=== PATIENT | female | born 1955 | race Caucasian/White ===

== ENCOUNTER 2021-07-28 17:20 | Emergency (ER) | payer MEDICARE ==
[~2021-07-28] VITALS: Ht 165.1 cm; Wt 46.3 kg
[~2021-07-28 17:20] MED LIST: EYE DROPS; NKHM; VICODIN 5/500 505 MG PO
[2021-07-28 18:11] LABS: BASO % 0.6 % (0.0-1.0); EOS # 0.1 10*3/uL (0.0-0.4); EOS % 2.3 % (1.0-4.0); HEMATOCRIT 43.2 % (37.0-47.0); LYMPH # 1.1 10*3/uL (1.3-4.4); LYMPH % 21.9 % (27.0-41.0); MEAN CORPUSCULAR HGB 27.9 pg (27.0-31.0); MEAN CORPUSCULAR HGB CONC 31.7 g/dl (33.0-37.0); MEAN PLATELET VOLUME 10.4 fl (9.6-12.3); MONO # 0.4 10*3/uL (0.1-1.0); MONO % 7.6 % (3.0-9.0); NEUT # 3.3 10*3/uL (2.3-7.9); NEUT % 67.4 % (47.0-73.0); PLATELET COUNT AUTOMATED 285 10*3/uL (130-400); RED BLOOD COUNT 4.91 10*6/uL (4.10-5.10); RED CELL DISTRI WIDTH 13.5 % (0-14.5); WHITE BLOOD COUNT 4.9 10*3/uL (4.8-10.8)
[2021-07-28 18:26] LABS: ALKALINE PHOSPHATASE 70 U/L (45-117); BUN 12 mg/dl (7-24); CHLORIDE 106 mmol/L (98-107); CREATININE 0.87 mg/dL (0.55-1.02); SGOT/AST 14 IU/L (3-35); SGPT/ALT 18 U/L (12-78); SODIUM 141 mmol/L (136-145); TOTAL PROTEIN 7.1 gm/dL (6.4-8.2); URIC ACID 2.4 mg/dL (2.6-6.0)
[2021-07-28] MEDS ORDERED: PREDNISONE50 MG PO ×3 (18:47→19:00)
== END 2021-07-28 18:51 | disposition home or self-care (01) ==
LOC: ED 17:20
PROVIDERS: Nurse Practitioner Family
DX: M10.9 Gout, unspecified (principal)

== ENCOUNTER 2021-11-27 20:56 | Emergency (ER) | payer MEDICARE ==
[~2021-11-27 20:56] MED LIST changes: +PREDNISONE50 MG PO
[2021-11-27] MEDS ORDERED: PREDNISONE20 M1 PO (21:28)
[2021-11-27] MEDS ORDERED: HYDROXYZINE HCL25 MG PO (21:28)
== END 2021-11-27 21:57 | disposition home or self-care (01) ==
LOC: ED 20:56
DX: L25.5 Unspecified contact dermatitis due to plants, except food (principal)